=== PATIENT | female | born 1985 | race Two or more races ===

== ENCOUNTER 2018-01-16 23:09 | Emergency (ER) | payer SELFPAY ==
--- NOTE | 2018-01-17 00:30 | ER Document Report ---
HPI - HPI Patient complains to provider of: hematuria Pain Level: Denies Context: Patient is a 32-year-old female comes emergency department for chief complaint of blood in her urine. She states she has noticed over the past couple of days. She states she has noticed it randomly in her underwear as well. She denies any vaginal bleeding, reports normal bowel movements. She denies abdominal pain, fever chills, nausea or vomiting or any other symptoms. She takes no daily medications. Past medical history of tubal ligation and she has had kidney stones in the past. - REPRODUCTIVE Reproductive: REPORTS: : Past Medical History - General Information source: Patient - Social History Smoking Status: Never Smoker Frequency of alcohol use: None Drug Abuse: None Lives with: Family Family History: DM, Hypertension - Medical History Medical History: Negative Surgical Hx: Negative - Immunizations Hx Diphtheria, Pertussis, Tetanus Vaccination: Yes Vertical Provider Document - CONSTITUTIONAL General Appearance: WD/WN, No Apparent Distress - INFECTION CONTROL TRAVEL OUTSIDE OF THE [place] IN LAST 30 DAYS: No - HEENT HEENT: Atraumatic, Normocephalic - NECK Neck: Normal Inspection - RESPIRATORY Respiratory: Breath Sounds Normal, No Respiratory Distress O2 Sat by Pulse Oximetry: 100 - CARDIOVASCULAR Cardiovascular: Regular Rate, Regular Rhythm - GI/ABDOMEN Gastrointestinal: Abdomen Soft, Abdomen Non-Tender - BACK Back: Normal Inspection. negative: CVA Tenderness-Right, CVA Tenderness-Left - NEURO Level of Consciousness: Awake, Alert, Appropriate - DERM Integumentary: Warm, Dry, No Rash Course - Re-evaluation Re-evalutation: Catheterized urine sample to evaluate whether or not patient has hematuria. Urine is completely unremarkable. Soft abdomen, well-appearing patient. Discussed negative results with patient, she states she is very relieved, she states she "googled" all the things that hematuria could be. No additional concerns, no symptoms, no complaints. Suspect patient has some vaginal spotting , patient does not request an evaluation for this, states she is ready to leave. Vital signs unremarkable, patient stable at time of discharge. - Vital Signs Vital signs: Temp Pulse Resp BP Pulse Ox 97.8 F 78 18 142/99 H 100 01/16/18 23:14 01/16/18 23:14 01/16/18 23:14 01/16/18 23:14 01/16/18 23:14 Discharge - Discharge Clinical Impression: Vaginal spotting Condition: Stable Disposition: HOME, SELF-CARE Additional Instructions: No hematuria (blood in urine) or other abnormality are seen on your workup tonight. The remaining evaluation is normal. Follow up routinely with primary care. Return for any concerning symptoms including vomiting, fever, abdominal pain, flank pain, or any other concerning symptoms.
[2018-01-17 01:06] LABS: APPEARANCE,URINE CLEAR; BILIRUBIN,URINE NEGATIVE (NEGATIVE); COLOR,URINE STRAW; GLUCOSE, URINE NEGATIVE (NEGATIVE); KETONES,URINE NEGATIVE (NEGATIVE); LEUKOCYTE ESTERASE,URINE NEGATIVE (NEGATIVE); NITRITE,URINE NEGATIVE (NEGATIVE); PROTEIN,URINE NEGATIVE (NEGATIVE); URINE SPECIFIC GRAVITY 1.004; UROBILINOGEN,URINE NEGATIVE mg/dL (<2.0)
[2018-01-17 01:43] VITALS: BP 123/82
== END 2018-01-17 01:43 | disposition home or self-care (01) ==
LOC: ER 23:09
DX: N93.9 Abnormal uterine and vaginal bleeding, unspecified (principal); Z98.51 Tubal ligation status; Z87.442 Personal history of urinary calculi
CPT/HCPCS: 51701; 81001; 81025; 99284